=== PATIENT | male | born 1985 | race Caucasian/White ===

== ENCOUNTER 2018-02-07 18:51 | Emergency (ER) | payer SELFPAY ==
[~2018-02-07] VITALS: Ht 182.9 cm; Wt 155.4 kg
[~2018-02-07 18:51] MED LIST: HYDR-3965 PO
[2018-02-07 18:56] VITALS: BP 169/110
== END 2018-02-07 20:15 | disposition home or self-care (01) ==
LOC: ER 18:51
DX: M79.661 Pain in right lower leg (principal); I10 Essential (primary) hypertension; Z88.5 Allergy status to narcotic agent; Z79.899 Other long term (current) drug therapy
CPT/HCPCS: 73590; 99284

== ENCOUNTER 2019-01-30 10:32 | Emergency (ER) | payer MEDICAID ==
[~2019-01-30] VITALS: Ht 182.9 cm; Wt 164.3 kg
[2019-01-30 10:37] VITALS: BP 172/114
--- NOTE | 2019-01-30 10:49 | NUR ---
AMBULATORY TO ER #10 WITH C/O LEFT HEEL PAIN. STATES THE PAIN HAS BEEN BOTHERING HIM FOR A FEW DAYS AND INCREASES WITH STANDING AND PUTTING PRESSURE ON HIS HEEL. NO REDNESS OR ULCERATIONS NOTED. HEEL TENDER ON PALPATION.
[2019-01-30] MEDS ORDERED: HYDR-4353 PO (12:08)
== END 2019-01-30 12:27 | disposition home or self-care (01) ==
LOC: ER 10:33
DX: M72.2 Plantar fascial fibromatosis (principal); I10 Essential (primary) hypertension; Z88.5 Allergy status to narcotic agent; Z79.899 Other long term (current) drug therapy
CPT/HCPCS: 73630; 99283